=== PATIENT | male | born 1950 | race Caucasian/White ===

== ENCOUNTER 2017-04-29 20:09 | Emergency (ER) | payer BC ==
[2017-04-29 22:04] VITALS: BP 125/67
[2017-04-30] MEDS ORDERED: Oseltamivir CAP* 75 MG CAP PO ONE ×2 (00:04)
--- NOTE | 2017-04-30 00:07 | UC ---
Respiratory Complaint HPI - HPI Summary HPI Summary: 66 yo male with cough/myalgias/fever chills - History of Current Complaint Chief Complaint: UCRespiratory Stated Complaint: SORE THROAT, COLD SYM Time Seen by Provider: 04/29/17 23:44 Hx Obtained From: Patient Onset/Duration: Sudden Onset, Gradual Onset Timing: Constant Severity Initially: Moderate Severity Currently: Moderate Pain Intensity: 2 Character: Cough: Nonproductive - Allergies/Home Medications Allergies/Adverse Reactions: Allergies Allergy/AdvReac Type Severity Reaction Status Date / Time Penicillins Allergy Airway Verified 04/29/17 21:59 Obstruction easter conner Allergy Congestion Uncoded 04/29/17 21:59 Home Medications: Home Medications Nebivolol TAB (NF) [Bystolic TAB (NF)] 5 mg PO DAILY 04/29/17 [History Confirmed 04/29/17] PMH/Surg Hx/FS Hx/Imm Hx Previously Healthy: Yes - Surgical History Surgical History: None - Family History Known Family History: Positive: Hypertension - Social History Alcohol Use: None Substance Use Type: None Smoking Status (MU): Never Smoked Tobacco - Immunization History Most Recent Influenza Vaccination: 2012 Review of Systems Constitutional: Fever, Chills, Fatigue Skin: Negative Eyes: Negative ENT: Nasal Discharge Respiratory: Cough Cardiovascular: Negative Gastrointestinal: Negative Genitourinary: Negative Motor: Negative Neurovascular: Negative Musculoskeletal: Myalgia Neurological: Negative Psychological: Negative Is Patient Immunocompromised?: No All Other Systems Reviewed And Are Negative: Yes Physical Exam Triage Information Reviewed: Yes Appearance: Well-Appearing, No Pain Distress, Well-Nourished Vital Signs: Initial Vital Signs Temp 99.1 F 04/29/17 21:59 Pulse 70 04/29/17 21:59 Resp 16 04/29/17 21:59 BP 125/67 04/29/17 21:59 Pulse Ox 99 04/29/17 21:59 Vital Signs Reviewed: Yes Eyes: Positive: Conjunctiva Clear ENT: Positive: Nasal congestion, Nasal drainage, Muffled voice, Hoarse voice Neck: Positive: Supple, Nontender, No Lymphadenopathy Respiratory: Positive: No respiratory distress, No accessory muscle use, Crackles - right base Cardiovascular: Positive: RRR, No Murmur Musculoskeletal: Positive: ROM Intact, No Edema Neurological: Positive: Alert Psychological Exam: Normal Skin Exam: Normal UC Diagnostic Evaluation - Laboratory O2 Sat by Pulse Oximetry: 99 - normal/not hypoxic - Radiology Xray Interpretation: No Acute Changes Radiology Interpretation Completed By: ED Physician Respiratory Course/Dx - Differential Dx/Diagnosis Provider Diagnoses: influenza or influenza like illness Discharge - Discharge Plan Condition: Stable Disposition: HOME Prescriptions: Oseltamivir CAP* [Tamiflu CAP*] 75 mg PO BID #8 cap Patient Education Materials: Influenza (ED) Referrals: Virgen Bernstein MD [Primary Care Provider] - 6 Days (if not better) Additional Instructions: rest fluids call mid morning for offical xr reading [phone] recheck for new or worsening symptoms will treat for influenza or influenza like illness
--- NOTE | 2017-04-30 08:04 | RAD ---
Indication: Cough. 2 views of the chest including dual energy PA views demonstrate no mediastinal shift. Heart is of normal size and configuration. Lung valle are clear. Lung valle appear hyperinflated. IMPRESSION: No active cardiopulmonary disease is noted.
== END 2017-04-30 00:26 | disposition home or self-care (01) ==
LOC: UCCORT 20:09
DX: J11.1 Influenza due to unidentified influenza virus with other respiratory manifestations (principal)
CPT/HCPCS: 71046; 99202; A9270-GY; G0463